=== PATIENT | female | born 1990 | race Caucasian/White ===

== ENCOUNTER 2019-09-07 21:47 | Inpatient (IN) | payer OTHER ==
[2019-09-07] MEDS: Lactated Ringers 1000 ML Bag* 1,000 ML IV ONE (22:56)
[2019-09-07 22:59] LABS: Urine Benzodiazepine Screen None Detected (None Detect); Urine Opiates Screen None Detected (None Detect)
[2019-09-07 23:02] LABS: ABS Basophils 0.1 10^3/ul (0-0.2); ABS Eosinophils 0.1 10^3/ul (0-0.6); ABS Monocytes 0.6 10^3/ul (0-0.8); ABS Neutrophils 7.3 10^3/ul (1.5-7.7); Eosinophil % 0.5 %; Hematocrit 33 % (35-47); Hemoglobin 11.1 g/dL (12.0-16.0); Lymphocyte % 20.1 %; Mean Corpuscular HGB Conc 34 g/dL (31-36); Mean Corpuscular Hemoglobin 29 pg (27-31); Mean Corpuscular Volume 85 fL (80-97); Mean Platelet Volume 9.2 fL (7.4-10.4); Nucleated Red Blood Cells % 0.1; Platelet Count 178 10^3/uL (150-450); Red Blood Count 3.91 10^6 /uL (3.70-4.87); Red Cell Distribution Width 14 % (10-15); White Blood Count 10.1 10^3/uL (3.5-10.8)
--- NOTE | 2019-09-07 23:37 | HP ---
General Information - Reason for Visit IUP at 40-2/7 s/p spontaneous rupture to clear fluid, mild UCs - General Information Maternal Age: 29 Grav: 2 Para: 1 SAB: 0 IEA: 0 Estimated Due Date: 09/05/19 Determined By: LMP Maternal Blood Type and Rh: O Negative - Results this Serology/RPR Result: Non-Reactive Rubella Result: Immune HBsAg Result: Negative HIV Result: Negative GBS Culture Result: Negative Past Medical History Delivery History: Hx Uncomplicated Vaginal Delivery Delivery History Comment: 06/2016 6lbs 14oz female. Delivered at [facility] [place]. Moran Pertinent Past Medical History: Non-Contributory Pertinent Past Surgical History: None Pertinent Family History: See Records Family History Comment: Mother: HTN - Antepartal Records Antepartal Records: Reviewed, Uncomplicated - Rh negative. Received RhoGAM per protocol. Travel to [facility]/[place] - Zika testing negative Review of Systems Constitutional: Uncomfortable - with UCs CV Complaint: No Respiratory: Shortness of Breath: No Gastrointestinal: No Nausea/Vomiting, Normal Bowel Movement Genitourinary: Leaking Fluid, No Dysuria, No Bleeding Musculoskeletal: Contractions Neurological: No Headache, No Visual Changes Movement: Normal Exam Allergies/Adverse Reactions: Allergies No Known Allergies Allergy (Verified 09/07/19 22:44) Vital Signs 09/07/19 09/07/19 21:55 22:23 Temperature 98.3 F Pulse Rate 97 Respiratory 15 Rate Blood Pressure 138/86 127/81 (mmHg) O2 Sat by Pulse 99 Oximetry Lab Values - Entire Visit: Laboratory Tests 09/07/19 09/07/19 09/07/19 22:00 22:50 22:50 WBC 10.1 RBC 3.91 Hgb 11.1 L Hct 33 L MCV 85 MCH 29 MCHC 34 RDW 14 Plt Count 178 MPV 9.2 Neut % (Auto) 72.5 Lymph % (Auto) 20.1 [place] % (Auto) 6.3 Eos % (Auto) 0.5 Baso % (Auto) 0.6 Absolute Neuts (auto) 7.3 Absolute Lymphs (auto) 2.0 Absolute Monos (auto) 0.6 Absolute Eos (auto) 0.1 Absolute Basos (auto) 0.1 Absolute Nucleated RBC 0.0 Nucleated RBC % 0.1 Urine Opiates Screen None detected Ur Barbiturates Screen None detected Ur Phencyclidine Scrn None detected Ur Amphetamines Screen None detected U Benzodiazepines Scrn None detected Urine Cocaine Screen None detected U Cannabinoids Screen None detected Blood Type O Negative - Measurements Height: 5 ft 4 in Weight: 147 lb Weight in lbs: 147.389385 Body Mass Index (BMI): 25.2 Pre- Weight: 118 lb Weight Gained This : 29 lbs and 0 ozs - Exam Breast: Breast Exam Deferred CVA: No CVA Tenderness Extremities: No Edema Heart: Normal Rhythm/Heart Sounds HEENT: No Significant Findings Lungs: Clear Bilaterally Rectal: Rectal Exam Deferred Reflexes: DTR 2+ Thyroid: No Thyromegaly - Abdominal Exam Abdomen Exam: Non-Tender - Ultrasound/Biophysical Profile Ultrasound Status: Not Done Targeted Exam Findings See L&D Outpatient Visit Provider Note for Findings: N/A Estimated Weight: EFW 7.5-8lbs by Kiarra Cervical Exam: 1cm, 2cm Effacement: 100% Station: -1 Presenting Part: Vertex Membrane Status: SROM Amniotic Fluid Evaluation: Gross Rupture Sterile Speculum Exam: Not done Bleeding/Discharge: None EFM Findings - External Monitor Findings Baseline Heart Rate: 125 External Monitor Findings: Accelerations Present, No Pattern of Variable or Late Decelerations, Variability Moderate, Baseline Stable External Monitor Findings Comment: No evidence of metabolic acidemia Contractions: Mild Contraction Frequency: q 3-5 min Assessment/Plan - Assessment IUP at 40-2/7 with SROM in latent labor No evidence of metabolic acidemia - Plan Plan: Admit - Anticipate Vaginal Delivery Plan Comment: Pt will want epidural in active labor. Enc rest, position changes until then. Will continue to monitor. Anticipate - Date/Time of Admission Date of Admission: 09/07/19 Time of Admission: 22:06
[2019-09-08] MEDS ORDERED: Nalbuphine* 10 MG/ML 1 ML VIAL IV ONE (00:21)
[2019-09-08] MEDS ORDERED: Promethazine INJ(RESTRICTED)* 25 MG/ML 1 ML VIAL IV ONE (00:21)
--- NOTE | 2019-09-08 00:23 | PN ---
Progress Note - Progress Note Date of Service: 09/08/19 Note: Quick Note: Pt requesting something for sleep. Reports UCs consistent but not stronger and she is unable to rest. PARQ IV Nubain/Phenergan. Pt desires.
[2019-09-08] MEDS ORDERED: OBEPIDURAL* 0 ML EPIDURAL ONE (00:41)
--- NOTE | 2019-09-08 00:47 | PN ---
Progress Note - Progress Note Date of Service: 09/08/19 Note: S: Paged by RN to evaluate pt due to increased discomfort with UCs and possible epidural placement instead of original IV Nubain/Phenergan plan for sleep. Pt in bed breathing with UCs. FOB and her mother at bedside for support O: BP 127/81 HR 85 FHT 125bpm. Moderate variability. +Accels. No decels UCs q 2-3, moderate-firm VE 4-5cm/100%/vtx -1, clear fluid A: IUP at 40-3/7 in active labor No evidence of metabolic acidemia P: Anesthesia paged for consult. Bedside support and reassurance
[2019-09-08] MEDS: Lactated Ringers 1000 ML Bag* 1,000 ML IV ONE (01:17)
[2019-09-08] MEDS ORDERED: Acetaminophen TAB* 325 MG PO PRN (01:47)
[2019-09-08] MEDS ORDERED: Dibucaine 1% 28.35 GM TUBE PR PRN (01:47)
[2019-09-08] MEDS ORDERED: Glycerin ADULT SUPP PR PRN (01:47)
[2019-09-08] MEDS ORDERED: Witch Hazel PAD* JAR TOPICAL PRN (01:47)
--- NOTE | 2019-09-08 01:52 | PROCNOTE ---
[facility] OB: Delivery Note - Delivery A Date of : 09/08/19 Time of : 01:27 Gro[place] Sex: Female - "Kassy" Score 1 Minute: 8 Score 5 Minutes: 8 Gestational Age in Weeks and Days at Delivery: 40 Weeks and 3 Days Delivery Method: Spontaneous Vaginal Labor: Spontaneous Did Patient attempt ?: N/A, No Previous Amniotic Fluid: Clear Estimated Blood Loss: 300 Anesthesia/Analgesia: None - due to precipitous Delivered By: Abel Malin - Nursery Level of Nursery: Regular/Bedside - Perineum Perineal Injury: None/Intact Perineal Repair: None - Events Delivery Events of Note: Precipitous Delivery - Additional Delivery Notes Additional Delivery Notes: Pt admitted with spontaneous rupture of membranes to clear fluid followed by spontaneous labor. Length of labor 1 hour, 2 min. Pushed x 5 min. liveborn female. Slow, controlled delivery of head. OA to MERI. Tight nuchal cord x 2. Unable to reduce. Unable to somersault through. Cord clamped x 2 and cut on perineum. Shoulders followed easily. vigorous with spontaneous cry. HR>110bpm. Delivered to maternal abdomen. Spontaneous delivery intact placenta. Membranes complete. Fundus firm to massage with minimal bleeding noted. Perineum intact. No repair needed as above. EBL 300mL. At time of note mother and in stable condition. Planning to both breast and bottle feed.
[2019-09-08] MEDS ORDERED: Lactated Ringers 1000 ML Bag* 1,000 ML IV SCH (02:00)
[2019-09-08] MEDS ORDERED: Measles, Mumps,Rubella VACC* 0.5 ML/VIAL SUBCUT ONE (02:02)
[2019-09-08] MEDS: Ibuprofen TAB* 600 MG PO SCH ×3 (02:35→14:28)
[2019-09-08] MEDS: Docusate CAP* 100 MG PO SCH ×3 (08:27→19:23)
[2019-09-08] MEDS ORDERED: Simethicone TAB* 80 MG TAB.CHEW PO SCH (08:30)
[2019-09-08 09:46] LABS: ABS Lymphocytes 1.7 10^3/ul (1.0-4.8); ABS Monocytes 0.7 10^3/ul (0-0.8); ABS Neutrophils 11.6 10^3/ul (1.5-7.7); Eosinophil % 0.1 %; Hematocrit 32 % (35-47); Hemoglobin 10.6 g/dL (12.0-16.0); Lymphocyte % 12.1 %; Mean Corpuscular HGB Conc 33 g/dL (31-36); Mean Corpuscular Hemoglobin 28 pg (27-31); Mean Corpuscular Volume 85 fL (80-97); Mean Platelet Volume 9.3 fL (7.4-10.4); Platelet Count 164 10^3/uL (150-450); Red Blood Count 3.77 10^6 /uL (3.70-4.87); Red Cell Distribution Width 15 % (10-15)
[2019-09-09] MEDS: Ibuprofen TAB* 600 MG PO SCH ×2 (08:15→13:53)
[2019-09-09] MEDS: Docusate CAP* 100 MG PO SCH ×2 (08:15→13:55)
[2019-09-09] MEDS ORDERED: Ferrous Gluconate TAB* 324 MG TAB PO SCH (09:00)
[2019-09-09] MEDS ORDERED: RHO D Immune Globulin (HUMAN)* 300 MCG = 1,500 I.U. INJ IM ONE (10:48)
[2019-09-09 12:08] VITALS: BP 117/68
== END 2019-09-09 15:13 | disposition home or self-care (01) | DRG 560 ==
LOC: MCHOBOUT 21:47 → MCHOB 22:06
PROVIDERS: ADMIT Midwife; ATTEND Midwife
PROC: 10E0XZZ Delivery of Products of Conception, External Approach (ICD-10-PCS; principal; 2019-09-08)
DX: O48.0 Post-term pregnancy (principal); Z37.0 Single live birth; O69.81X0 Labor and delivery complicated by cord around neck, without compression, not applicable or unspecified; Z3A.40 40 weeks gestation of pregnancy
CPT/HCPCS: 36415; 80307; 85025; 85461; 86850; 86900; 86901; 90707; A9270-GY; J2790